=== PATIENT | female | born 1945 | race Two or more races ===

== ENCOUNTER 2023-04-02 17:40 | Emergency (ER) | payer OTHER ==
[~2023-04-02] VITALS: Ht 157.5 cm; Wt 56.7 kg
[2023-04-02] MEDS ORDERED: [UNRECOGNIZED DRUG - OTHER] (17:53)
[2023-04-02] MEDS ORDERED: GLUMETZA500 MG (17:53)
[2023-04-02] MEDS ORDERED: COZAAR25 MG PO (17:54)
[2023-04-02 18:28] LABS: HEMATOCRIT 31.8 % (36.0-45.00); HEMOGLOBIN 10.6 g/dL (12.0-15.00); MEAN CELL VOLUME 93.6 fL (80.00-100.00); MEAN CORPUSCULAR HEMOGLOBIN 31.4 pg (27.00-32.0); MEAN CORPUSCULAR HGB CONC 33.5 g/dl (32.0-36.0); PLATELET COUNT 307 K/uL (150-450); RED BLOOD COUNT 3.39 M/uL (4.00-6.00); RED CELL DISTRIBUTION WIDTH 14.3 % (11.5-14.5)
[2023-04-02 18:58] LABS: ALBUMIN 3.6 gm/dL (3.4-5.0); ALKALINE PHOSPHATASE 78 U/L (50-136); ANION GAP 9 (10.0-20.0); AST/SGOT 15 U/L (15-37); BILIRUBIN TOTAL 0.75 mg/dL (0.3-1.2); BLOOD UREA NITROGEN 75 mg/dL (7-18); BUN CREA RATIO 49 (7.0-25.0); CALCIUM 9.3 mg/dL (8.5-10.1); CARBON DIOXIDE 28 mEq/L (21-32); CHLORIDE 110 mmol/L (98-107); CREATININE SERUM 1.52 mg/dL (0.55-1.02); GFR 33.07; GLOBULINA 3.4 G/DL (2.4-3.5); GLUCOSE FASTING 91 mg/dL (65-100); OSMOLALITY SERUM 307 MOSM/KG (275-295); POTASSIUM 4.09 mEq/L (3.5-5.1); SODIUM 143 mmol/L (136-145)
[2023-04-02 19:00] LABS: ALT/SGPT < 6 U/L (12-78)
[2023-04-02] MEDS ORDERED: NORFLEX100MG PO (20:43)
== END 2023-04-03 03:37 | disposition home or self-care (01) ==
LOC: ER 17:40
PROVIDERS: General Practice
DX: M54.89 Other dorsalgia (principal); E11.9 Type 2 diabetes mellitus without complications; Z79.84 Long term (current) use of oral hypoglycemic drugs; I10 Essential (primary) hypertension; Z20.822 Contact with and (suspected) exposure to COVID-19; R51.9 Headache, unspecified
CPT/HCPCS: 36415; 96372; 99284; J1885; J2360

== ENCOUNTER 2024-11-17 14:45 | Inpatient (IN) | payer OTHER ==
[~2024-11-17] VITALS: Ht 152.4 cm; Wt 68.0 kg
[~2024-11-17 14:45] MED LIST: COZAAR25 MG PO; GLUMETZA500 MG; NORFLEX100MG PO; [UNRECOGNIZED DRUG - OTHER]
[2024-11-17] MEDS ORDERED: PHENAZOPYRIDINE HCL 100 MG TABLET PO ONE ×2 (16:30→16:34)
[2024-11-17] MEDS ORDERED: TAMSULOSIN HCL 0.4 MG CAP PO ONE ×2 (16:30→16:34)
[2024-11-17] MEDS ORDERED: KETOROLAC TROMETHAMINE 30 MG VIAL IV ONE (16:30)
[2024-11-17] MEDS ORDERED: CEFTRIAXONE SODIUM 1,000 MG VIAL IV ONE (16:30)
[2024-11-17] MEDS ORDERED: FAMOtidine 10 MG/ML (4ML VIAL) IV ONE (16:30)
[2024-11-17] MEDS ORDERED: FAMOTIDINE/PF 20 MG/2 ML VIAL ONE (16:34)
[2024-11-17] MEDS ORDERED: KETOROLAC TROMETHAMINE 30 MG VIAL ONE (16:34)
[2024-11-17] MEDS ORDERED: CEFTRIAXONE SODIUM 1,000 MG VIAL ONE (16:34)
[2024-11-17 17:25] LABS: BASO % 1.0 % (0.1-1.2); EOS # 0.09 (0.04-0.54); EOS % 1.2 % (0.7-7.0); LYMPH # 2.39 (1.18-3.74); LYMPH % 32.7 % (19.3-53.1); MEAN PLATELET VOLUME 9.70 fl (9.4-12.4); MONO # 0.56 (0.24-0.82); MONO % 7.7 % (4.7-12.5); NEUT # 4.18 (1.56-6.13); NEUT % 57.1 % (34.0-71.1); RED CELL DISTRIBUTION WIDTH 13.0 % (11.6-14.4)
[2024-11-17 17:48] LABS: INR 0.96
[2024-11-17 17:54] LABS: ALT/SGPT 15.0 U/L (12-78); AST/SGOT 17.0 U/L (15-37); BILIRUBIN TOTAL 0.74 mg/dL (0.3-1.2); BUN CREA RATIO 39.0 (7.0-25.0); CREATININE SERUM 1.76 mg/dL (0.55-1.02); GFR 27.78; GLOBULINA 3.3 G/DL (2.4-3.5); GLUCOSE FASTING 101.0 mg/dL (65-100); OSMOLALITY SERUM 309.0 MOSM/KG (275-295)
[2024-11-17 20:24] LABS: URINE APPEARANCE Turbid; URINE BILIRRUBIN Negative (NEGATIVE); URINE BLOOD Moderate; URINE COLOR Dark Yellow; URINE GLUCOSE Negative (NEGATIVE); URINE KETONE Negative (NEGATIVE); URINE LEUKOCYTE Large; URINE NITRATE Positive; URINE UROBILINOGEN 1.0 E.U./dl
[2024-11-17 20:25] LABS: URINE BACTERIA 2578.7 uL (0.0-1933); URINE CAST 2.19 uL (0.0-1.40); URINE EPITHELIAL CELLS 29.5 uL (0.0-38.8); URINE RBC 161.9 uL (0.0-20.8)
[2024-11-17 21:16] LABS: URINE PROTEIN 100 (NEGATIVE); URINE WBC > 5548.3 uL (0.0-23.2); URINE YEAST FEW /hpf
[2024-11-17] MEDS ORDERED: 0.9 % SODIUM CHLORIDE 1,000 ML IV SCH (22:15)
[2024-11-17] MEDS ORDERED: CEFTRIAXONE SODIUM 2,000 MG in 0.9 % SODIUM CHLORIDE 100 ML IV SCH (22:17)
[2024-11-17] MEDS ORDERED: ACETAMINOPHEN 500 MG GEL..CAP PO PRN (22:30)
[2024-11-17] MEDS ORDERED: hydrALAZINE HCL 20 MG VIAL IV PRN (22:30)
[2024-11-17] MEDS ORDERED: INSULIN LISPRO 1,000 UNIT/10 ML UNITS SUBCUTANEO PRN (22:30)
[2024-11-17] MEDS ORDERED: DEXTROSE 50 % IN WATER 0.5 G/ML DISP.SYRIN IV PRN (22:30)
[2024-11-17] MEDS ORDERED: ONDANSETRON HCL 4 MG in 0.9 % SODIUM CHLORIDE 50 ML IV PRN (22:30)
[2024-11-18 04:55] LABS: COVID-19 AG NEGATIVE (NEGATIVE)
[2024-11-18 05:00] LABS: CHOL HDL RATIO 4.4 (0-5.0); HDL 54.0 mg/dl (40-60); LDL 155.0 mg/dl (0-130); VLDL 29.0 (0-39)
[2024-11-18] MEDS ORDERED: FLUCONAZOLE IN NACL,ISO-OSM 200 MG/100 ML PIGGYBAG IV SCH (09:00)
[2024-11-18] MEDS ORDERED: POLYETHYLENE GLYCOL 3350 17 GM BLIST.PACK PO SCH (09:00)
[2024-11-18] MEDS ORDERED: FAMOTIDINE/PF 20 MG in 0.9 % SODIUM CHLORIDE 8 ML IV PUSH SCH (09:00)
[2024-11-18] MEDS ORDERED: CARBIDOPA/LEVODOPA 25/100 UDTAB PO SCH (09:00)
[2024-11-18] MEDS ORDERED: LACTOBACILLUS ACIDOPHILUS 1 CAP CAP PO SCH (09:00)
[2024-11-18 09:41] VITALS: BP 150/66; O2SAT 99
[2024-11-18 16:44] VITALS: BP 155/72; O2SAT 97
[2024-11-18] MEDS ORDERED: NIFEDIPINE 30 MG TAB.SA.OSM PO SCH (17:00)
[2024-11-18] MEDS ORDERED: DOCUSATE SODIUM 100MG CAP PO SCH (17:00)
[2024-11-18] MEDS ORDERED: SODIUM CHLORIDE 0.45 % 1,000 ML IV SCH (17:45)
[2024-11-19 01:11] VITALS: BP 115/63; BP 122/71; O2SAT 96; O2SAT 97
[2024-11-19 08:00] VITALS: BP 113/65; O2SAT 96
[2024-11-19] MEDS ORDERED: FLUCONAZOLE IN NACL,ISO-OSM 2 MG/ML ML IV SCH (09:00)
[2024-11-19] MEDS ORDERED: ATORVASTATIN CALCIUM 20 MG TABLET PO SCH (09:00)
[2024-11-19] MEDS ORDERED: ENOXAPARIN SODIUM 30 MG/0.3 ML SYRINGE SUBCUTANEO SCH (09:00)
[2024-11-19] MEDS ORDERED: CARBIDOPA/LEVODOPA 25/100 UDTAB PO SCH (13:07)
[2024-11-19 16:00] VITALS: BP 138/75; O2SAT 96
[2024-11-20 01:05] VITALS: BP 147/71; O2SAT 96
[2024-11-20] MEDS ORDERED: HALOPERIDOL LACTATE 5 MG/ML AMPUL ONE (03:04)
[2024-11-20] MEDS ORDERED: DIPHENHYDRAMINE HCL 50 MG/ML VIAL 1ML ONE (03:05)
[2024-11-20 03:13] VITALS: BP 137/66; O2SAT 100
[2024-11-20] MEDS ORDERED: DIPHENHYDRAMINE HCL 50 MG/ML VIAL 1ML IV STA (03:13)
[2024-11-20] MEDS ORDERED: HALOPERIDOL LACTATE 5 MG/ML AMPUL IM STA (03:13)
[2024-11-20 06:05] LABS: BASO % 0.6 % (0.1-1.2); EOS # 0.05 (0.04-0.54); EOS % 0.6 % (0.7-7.0); LYMPH # 1.80 (1.18-3.74); LYMPH % 19.9 % (19.3-53.1); MEAN PLATELET VOLUME 10.00 fl (9.4-12.4); MONO # 0.55 (0.24-0.82); MONO % 6.1 % (4.7-12.5); NEUT # 6.56 (1.56-6.13); NEUT % 72.6 % (34.0-71.1); RED CELL DISTRIBUTION WIDTH 12.9 % (11.6-14.4)
[2024-11-20 06:19] LABS: BUN CREA RATIO 33.0 (7.0-25.0); CREATININE SERUM 1.5 mg/dL (0.55-1.02); GFR 33.41; GLUCOSE FASTING 120.0 mg/dL (65-100); OSMOLALITY SERUM 301.0 MOSM/KG (275-295)
[2024-11-20 08:00] VITALS: BP 124/65; O2SAT 100
[2024-11-20] MEDS ORDERED: CARBIDOPA/LEVODOPA 25/100 UDTAB PO SCH (09:00)
[2024-11-20 17:00] VITALS: BP 148/75; O2SAT 98
[2024-11-21 00:44] VITALS: BP 115/56; O2SAT 95
[2024-11-21 08:00] VITALS: BP 150/66; O2SAT 95
[2024-11-21 16:59] VITALS: BP 164/71; O2SAT 99
[2024-11-22 00:46] VITALS: BP 146/68; O2SAT 96
[2024-11-22 08:00] VITALS: BP 146/74; O2SAT 98
[2024-11-22 15:30] VITALS: BP 148/75; O2SAT 98
[2024-11-22] MEDS ORDERED: NIFEDIPINE 30 MG TAB.SA.OSM PO SCH (17:00)
[2024-11-23 06:49] LABS: BASO % 0.3 % (0.1-1.2); EOS # 0.01 (0.04-0.54); EOS % 0.1 % (0.7-7.0); LYMPH # 2.25 (1.18-3.74); LYMPH % 12.2 % (19.3-53.1); MEAN PLATELET VOLUME 10.20 fl (9.4-12.4); MONO # 0.78 (0.24-0.82); MONO % 4.2 % (4.7-12.5); NEUT # 15.19 (1.56-6.13); NEUT % 82.8 % (34.0-71.1); RED CELL DISTRIBUTION WIDTH 13.2 % (11.6-14.4)
[2024-11-23 07:36] LABS: ALT/SGPT 12.0 U/L (12-78); AST/SGOT 24.0 U/L (15-37); BILIRUBIN TOTAL 0.69 mg/dL (0.3-1.2); BUN CREA RATIO 24.0 (7.0-25.0); CREATININE SERUM 1.3 mg/dL (0.55-1.02); GFR 39.41; GLOBULINA 3.5 G/DL (2.4-3.5); GLUCOSE FASTING 102.0 mg/dL (65-100); OSMOLALITY SERUM 294.0 MOSM/KG (275-295)
[2024-11-23 08:00] VITALS: BP 170/55; O2SAT 98
[2024-11-23] MEDS ORDERED: MEROPENEM 500 MG/VIAL VIAL IV SCH (09:00)
[2024-11-23 15:13] LABS: URINE APPEARANCE Clear; URINE BILIRRUBIN Negative (NEGATIVE); URINE BLOOD Negative; URINE COLOR Yellow; URINE GLUCOSE Negative (NEGATIVE); URINE KETONE Trace (NEGATIVE); URINE LEUKOCYTE Negative; URINE NITRATE Negative; URINE UROBILINOGEN 0.2 E.U./dl
[2024-11-23 15:14] LABS: URINE BACTERIA 33.5 uL (0.0-1933); URINE CAST 2.63 uL (0.0-1.40); URINE EPITHELIAL CELLS 11.0 uL (0.0-38.8); URINE WBC 5.8 uL (0.0-23.2)
[2024-11-23 15:54] LABS: TYPE CELLS SQUAMOUS; URINE CRYSTALS FEW /HPF; URINE MUCUS SCANT; URINE PROTEIN 100 (NEGATIVE); URINE RBC 1.4 uL (0.0-20.8)
[2024-11-23] MEDS ORDERED: CARBIDOPA/LEVODOPA 25/250 TABLET PO SCH (17:00)
[2024-11-23 17:17] VITALS: BP 125/78; O2SAT 95
[2024-11-24 00:17] VITALS: BP 129/72; O2SAT 96
[2024-11-24 08:11] LABS: BASO % 0.3 % (0.1-1.2); EOS # 0.01 (0.04-0.54); EOS % 0.1 % (0.7-7.0); LYMPH # 1.65 (1.18-3.74); LYMPH % 12.5 % (19.3-53.1); MEAN PLATELET VOLUME 10.10 fl (9.4-12.4); MONO # 0.76 (0.24-0.82); MONO % 5.8 % (4.7-12.5); NEUT # 10.69 (1.56-6.13); NEUT % 80.9 % (34.0-71.1); RED CELL DISTRIBUTION WIDTH 13.1 % (11.6-14.4)
[2024-11-24 08:39] LABS: ALT/SGPT 8.0 U/L (12-78); AST/SGOT 19.0 U/L (15-37); BILIRUBIN TOTAL 0.62 mg/dL (0.3-1.2); BUN CREA RATIO 27.0 (7.0-25.0); CREATININE SERUM 1.28 mg/dL (0.55-1.02); GFR 40.12; GLOBULINA 3.6 G/DL (2.4-3.5); GLUCOSE FASTING 104.0 mg/dL (65-100); OSMOLALITY SERUM 297.0 MOSM/KG (275-295)
[2024-11-24] MEDS ORDERED: FLUCONAZOLE 100 MG TABLET PO SCH (12:00)
[2024-11-24 16:00] VITALS: BP 108/50; O2SAT 94
[2024-11-24] MEDS ORDERED: METOPROLOL SUCCINATE 25 MG TAB.SR.24H PO SCH (16:24)
[2024-11-25 08:00] VITALS: BP 130/73; O2SAT 95
[2024-11-25 08:52] LABS: ALT/SGPT 13.0 U/L (12-78); AST/SGOT 34.0 U/L (15-37); BILIRUBIN TOTAL 0.46 mg/dL (0.3-1.2); BUN CREA RATIO 31.0 (7.0-25.0); CREATININE SERUM 1.37 mg/dL (0.55-1.02); GFR 37.1; GLOBULINA 3.9 G/DL (2.4-3.5); GLUCOSE FASTING 86.0 mg/dL (65-100); OSMOLALITY SERUM 297.0 MOSM/KG (275-295)
[2024-11-25] MEDS ORDERED: NIFEDIPINE 30 MG TAB.SA.OSM PO SCH ×2 (09:00→17:00)
[2024-11-25 11:09] LABS: BASO % 0.6 % (0.1-1.2); EOS # 0.03 (0.04-0.54); EOS % 0.3 % (0.7-7.0); LYMPH # 1.31 (1.18-3.74); LYMPH % 12.6 % (19.3-53.1); MEAN PLATELET VOLUME 9.30 fl (9.4-12.4); MONO # 0.70 (0.24-0.82); MONO % 6.7 % (4.7-12.5); NEUT # 8.29 (1.56-6.13); NEUT % 79.4 % (34.0-71.1); RED CELL DISTRIBUTION WIDTH 13.0 % (11.6-14.4)
[2024-11-25] MEDS ORDERED: IRON FUM,PS/FOLIC/BCOMP,C NO.9 1 CAP CAPSULE PO SCH (15:00)
[2024-11-25 16:15] VITALS: BP 126/85; O2SAT 97
[2024-11-25] MEDS ORDERED: DOCUSATE SODIUM 100MG CAP PO SCH (21:00)
[2024-11-26] VITALS: BP 136/74; O2SAT 98
[2024-11-26 07:27] LABS: BASO % 0.5 % (0.1-1.2); EOS # 0.07 (0.04-0.54); EOS % 0.8 % (0.7-7.0); LYMPH # 2.18 (1.18-3.74); LYMPH % 23.7 % (19.3-53.1); MEAN PLATELET VOLUME 10.40 fl (9.4-12.4); MONO # 0.63 (0.24-0.82); MONO % 6.8 % (4.7-12.5); NEUT # 6.25 (1.56-6.13); NEUT % 67.9 % (34.0-71.1); RED CELL DISTRIBUTION WIDTH 13.1 % (11.6-14.4)
[2024-11-26 07:58] LABS: ALT/SGPT 14.0 U/L (12-78); AST/SGOT 27.0 U/L (15-37); BILIRUBIN TOTAL 0.54 mg/dL (0.3-1.2); BUN CREA RATIO 28.0 (7.0-25.0); CREATININE SERUM 1.3 mg/dL (0.55-1.02); GFR 39.41; GLOBULINA 3.7 G/DL (2.4-3.5); GLUCOSE FASTING 108.0 mg/dL (65-100); OSMOLALITY SERUM 296.0 MOSM/KG (275-295)
[2024-11-26 08:00] VITALS: BP 106/64; BP 122/70; O2SAT 96; O2SAT 97
[2024-11-26] MEDS ORDERED: METOPROLOL SUCCINATE 50 MG TAB.SR.24H PO SCH (09:00)
[2024-11-26 16:00] VITALS: BP 106/63; O2SAT 96
[2024-11-26] MEDS ORDERED: LORazepam 2 MG/ML VIAL ONE (16:02)
[2024-11-26] MEDS ORDERED: LORazepam 2 MG/ML VIAL IV STA (16:10)
[2024-11-26 23:51] VITALS: BP 147/80; O2SAT 99
[2024-11-27 08:00] VITALS: BP 174/74; O2SAT 99
[2024-11-27 16:15] VITALS: BP 151/72; O2SAT 97
[2024-11-28 01:20] VITALS: BP 112/68; O2SAT 94
[2024-11-28] MEDS ORDERED: CARBIDOPA-LEVO1 EA11 PO (11:05)
[2024-11-28] MEDS ORDERED: NIFEDIPINE ER30 M1 PO (11:06)
[2024-11-28] MEDS ORDERED: INTEGRA PLUS C1 EACH PO (11:07)
[2024-11-28] MEDS ORDERED: LIPITOR20 MG PO (11:08)
[2024-11-28] MEDS ORDERED: FAMOTIDINE20 MG PO (11:08)
[2024-11-28] MEDS ORDERED: INTESTINEX680 M1 PO (11:09)
[2024-11-28] MEDS ORDERED: TOPROL XL50 M1 PO (11:10)
[2024-11-28 11:22] VITALS: BP 137/70; O2SAT 94
== END 2024-11-28 13:18 | disposition home or self-care (01) | DRG 690 ==
LOC: ER 14:45 → SURG 22:19 → SEC-K 22:19 → SURG 11-18 00:56
PROVIDERS: General Practice; Internal Medicine; Internal Medicine Infectious Disease; ADMIT Internal Medicine; ATTEND Internal Medicine
PROC: BW21ZZZ Computerized Tomography (CT Scan) of Abdomen and Pelvis (ICD-10-PCS; principal; 2024-11-17)
PROC: B020ZZZ Computerized Tomography (CT Scan) of Brain (ICD-10-PCS; 2024-11-21)
DX: N39.0 Urinary tract infection, site not specified (principal); N17.9 Acute kidney failure, unspecified; E11.65 Type 2 diabetes mellitus with hyperglycemia; I12.9 Hypertensive chronic kidney disease with stage 1 through stage 4 chronic kidney disease, or unspecified chronic kidney disease; N18.9 Chronic kidney disease, unspecified; G20.A1 Parkinson's disease without dyskinesia, without mention of fluctuations; D72.829 Elevated white blood cell count, unspecified; E78.5 Hyperlipidemia, unspecified; R68.89 Other general symptoms and signs; Z74.09 Other reduced mobility; Z79.84 Long term (current) use of oral hypoglycemic drugs

== ENCOUNTER 2025-03-27 19:39 | Inpatient (IN) | payer OTHER ==
[~2025-03-27] VITALS: Ht 157.5 cm; Wt 77.1 kg
[~2025-03-27 19:39] MED LIST changes: +CARBIDOPA-LEVO1 EA11 PO; +FAMOTIDINE20 MG PO; +INTEGRA PLUS C1 EACH PO; +INTESTINEX680 M1 PO; +LIPITOR20 MG PO; +NIFEDIPINE ER30 M1 PO; +TOPROL XL50 M1 PO
[2025-03-27] MEDS ORDERED: IRBESARTAN75 MG PO (19:59)
--- NOTE | 2025-03-27 19:59 | NUR ---
PTE ALERTA Y ORIENTADA X3 LLEGA EN AMBULANCIA DEBIDO A QUE LA MISMA TIENE DOLOR ABDOMINAL Y 2 VOMITOS EN LA TARDE DE HOY.
[2025-03-28 00:40] LABS: BASO % 0.7 % (0.1-1.2); EOS # 0.10 (0.04-0.54); EOS % 1.4 % (0.7-7.0); LYMPH # 2.49 (1.18-3.74); LYMPH % 34.0 % (19.3-53.1); MEAN PLATELET VOLUME 9.60 fl (9.4-12.4); MONO # 0.43 (0.24-0.82); MONO % 5.9 % (4.7-12.5); NEUT # 4.23 (1.56-6.13); NEUT % 57.7 % (34.0-71.1); RED CELL DISTRIBUTION WIDTH 12.3 % (11.6-14.4)
[2025-03-28] MEDS ORDERED: FAMOtidine 10 MG/ML (4ML VIAL) IV ONE (01:15)
[2025-03-28] MEDS ORDERED: ONDANSETRON HCL 2 MG/ML VIAL IV ONE (01:15)
[2025-03-28] MEDS ORDERED: 0.9 % SODIUM CHLORIDE 1,000 ML IV ONE (01:15)
[2025-03-28 01:27] LABS: ALT/SGPT 6.0 U/L (12-78); AST/SGOT 15.0 U/L (15-37); BILIRUBIN TOTAL 0.53 mg/dL (0.3-1.2); BUN CREA RATIO 28.0 (7.0-25.0); CREATININE SERUM 2.18 mg/dL (0.55-1.02); GFR 21.7; GLOBULINA 3.3 G/DL (2.4-3.5); GLUCOSE FASTING 91.0 mg/dL (65-100); OSMOLALITY SERUM 300.0 MOSM/KG (275-295)
--- NOTE | 2025-03-28 01:50 | NUR ---
SE ORIENTA PTE SOBRE TX A SEGUIR, LA MISMA REFIERE ENTENDER. SE GILBERTO MUESTRA DE LAB BAJO MEDIDAS ASEPTICAS. SE REALIZA EKG Y SE PRESENTA A DR CANALES
--- NOTE | 2025-03-28 06:14 | NUR ---
SE ORIENTA SOBRE TX A SEGUIR, LA MISMA REFIERE ENTENDER. SE INSERTA VALDEZ BAJO MEDIDAS ESTERILES
[2025-03-28 06:36] LABS: URINE APPEARANCE Clear; URINE BILIRRUBIN Negative (NEGATIVE); URINE BLOOD Negative; URINE COLOR Yellow; URINE GLUCOSE Negative (NEGATIVE); URINE KETONE Negative (NEGATIVE); URINE LEUKOCYTE Small; URINE NITRATE Negative; URINE PROTEIN 30 (NEGATIVE); URINE UROBILINOGEN 0.2 E.U./dl
[2025-03-28 06:39] LABS: URINE BACTERIA 226.7 uL (0.0-1933); URINE CAST 2.19 uL (0.0-1.40); URINE EPITHELIAL CELLS 31.2 uL (0.0-38.8); URINE RBC 2.3 uL (0.0-20.8); URINE WBC 69.3 uL (0.0-23.2)
--- NOTE | 2025-03-28 06:56 | NUR ---
SE RECIBE A PACIENTE ALERTA Y ORIENTADA X3 EN AREA DE CRITICO, SE CONECTA A MONITOR CARDIACO Y OXIMETRIA CONTINUA. CANALIZADA CON #20 EN RT ARM, PATENTE, ADEOLA DE EDEMA Y ERITEMA Y BAJANDO [id number] KVO. PACIENTE CON VALDEZ COLOCADO BAJANDO A GRAVEDAD Y FIJADO. PACIENTE SE MANTIENE EN CAMA A NIVEL DE PISO JUNTO CON BARRANDAS ELEVADAS. PENDIENTE A ESTUDIOS Y CONSULTA CON MEDICINA INTERNA.
--- NOTE | 2025-03-28 09:44 | NUR ---
SE RECIBE PTE FEMENINA DE 79 YRS ALERTA CONCIENTE Y TRANQUILA EN CAMA EN LA UNIDAD DE ICU-2 CONCETADA A MONTIOR CARDIACO Y OXIMETRIA .SE LE REALIZA A PTE ESTUIUDO DE RX PORTABLE. SE MANTIENE EN ESPERA DE MEDICO CONSULTAOR EL [place] INTERNA.SE MANTIENE AL MOMENTO ADEOLA DE DOLOR .
[2025-03-28] MEDS ORDERED: LORazepam 2 MG/ML VIAL IV STA (14:03)
[2025-03-28] MEDS ORDERED: INSULIN LISPRO 1,000 UNIT/10 ML UNITS SUBCUTANEO PRN ×2 (15:30→19:30)
[2025-03-28] MEDS ORDERED: DEXTROSE 50 % IN WATER 0.5 G/ML DISP.SYRIN IV PRN ×2 (15:30→19:30)
[2025-03-28] MEDS ORDERED: ATORVASTATIN CALCIUM 40 MG TABLET PO SCH (16:59)
[2025-03-28] MEDS ORDERED: ACETAMINOPHEN 500 MG GEL..CAP PO PRN (17:00)
[2025-03-28] MEDS ORDERED: 0.9 % SODIUM CHLORIDE 1,000 ML IV SCH (17:00)
[2025-03-28 17:29] VITALS: BP 111/56
[2025-03-28 21:53] VITALS: BP 153/63
[2025-03-28] MEDS ORDERED: HALOPERIDOL LACTATE 5 MG/ML AMPUL IV PRN (23:30)
[2025-03-29 02:48] VITALS: BP 167/85; O2SAT 96
[2025-03-29 06:17] LABS: BASO % 0.5 % (0.1-1.2); EOS # 0.02 (0.04-0.54); EOS % 0.2 % (0.7-7.0); LYMPH # 1.14 (1.18-3.74); LYMPH % 11.3 % (19.3-53.1); MEAN PLATELET VOLUME 11.20 fl (9.4-12.4); MONO # 0.54 (0.24-0.82); MONO % 5.3 % (4.7-12.5); NEUT # 8.33 (1.56-6.13); NEUT % 82.4 % (34.0-71.1); RED CELL DISTRIBUTION WIDTH 12.1 % (11.6-14.4)
[2025-03-29 06:34] LABS: INR 0.98
[2025-03-29 06:57] LABS: ALT/SGPT 15.0 U/L (12-78); AST/SGOT 13.0 U/L (15-37); BILIRUBIN TOTAL 0.97 mg/dL (0.3-1.2); BUN CREA RATIO 32.0 (7.0-25.0); CREATININE SERUM 1.61 mg/dL (0.55-1.02); GFR 30.79; GLOBULINA 3.2 G/DL (2.4-3.5); GLUCOSE FASTING 91.0 mg/dL (65-100); OSMOLALITY SERUM 298.0 MOSM/KG (275-295); TSH 0.628 uIU/mL (0.358-3.74)
[2025-03-29] MEDS ORDERED: FAMOTIDINE/PF 20 MG in 0.9 % SODIUM CHLORIDE 8 ML IV PUSH SCH (09:00)
[2025-03-29] MEDS ORDERED: METOPROLOL SUCCINATE 50 MG TAB.SR.24H PO SCH (09:00)
[2025-03-29] MEDS ORDERED: IRBESARTAN 300 MG TABLET PO SCH (09:00)
[2025-03-29] MEDS ORDERED: CARBIDOPA/LEVODOPA 25/250 TABLET PO SCH (09:00)
[2025-03-29 09:02] VITALS: BP 160/75; O2SAT 96
[2025-03-29 19:59] VITALS: BP 148/72
[2025-03-30 01:52] VITALS: BP 163/65; O2SAT 96
[2025-03-30 08:20] VITALS: BP 160/69; O2SAT 98
[2025-03-30] MEDS ORDERED: AMLODIPINE BESYLATE 5 MG TABLET PO SCH (10:38)
[2025-03-30 16:18] VITALS: BP 158/64; O2SAT 97
[2025-03-31 01:01] VITALS: BP 190/71; O2SAT 96
[2025-03-31] MEDS ORDERED: hydrALAZINE HCL 20 MG VIAL IV PRN (05:30)
[2025-03-31] MEDS ORDERED: SODIUM CHLORIDE 0.45 % 1,000 ML IV SCH (05:30)
[2025-03-31 08:56] VITALS: BP 160/80; O2SAT 96
[2025-03-31] MEDS ORDERED: AMLODIPINE BESYLATE 10 MG TABLET PO SCH (09:00)
[2025-03-31] MEDS ORDERED: LOSARTAN POTASSIUM 25 MG TABLET PO NR (13:00)
[2025-03-31 15:15] LABS: BUN CREA RATIO 28.0 (7.0-25.0); CREATININE SERUM 1.18 mg/dL (0.55-1.02); GFR 44.07; GLUCOSE FASTING 96.0 mg/dL (65-100); OSMOLALITY SERUM 296.0 MOSM/KG (275-295)
[2025-03-31 17:11] VITALS: BP 116/65; O2SAT 96
[2025-04-01 03:04] VITALS: BP 171/79; O2SAT 100
[2025-04-01 05:38] LABS: BASO % 0.6 % (0.1-1.2); EOS # 0.10 (0.04-0.54); EOS % 1.0 % (0.7-7.0); LYMPH # 3.18 (1.18-3.74); LYMPH % 32.3 % (19.3-53.1); MEAN PLATELET VOLUME 10.50 fl (9.4-12.4); MONO # 0.54 (0.24-0.82); MONO % 5.5 % (4.7-12.5); NEUT # 5.96 (1.56-6.13); NEUT % 60.4 % (34.0-71.1); RED CELL DISTRIBUTION WIDTH 12.1 % (11.6-14.4)
[2025-04-01 05:42] LABS: BUN CREA RATIO 24.0 (7.0-25.0); CREATININE SERUM 1.18 mg/dL (0.55-1.02); GFR 44.07; GLUCOSE FASTING 106.0 mg/dL (65-100); OSMOLALITY SERUM 295.0 MOSM/KG (275-295)
[2025-04-01 09:00] VITALS: BP 129/62; O2SAT 97
[2025-04-01] MEDS ORDERED: LOSARTAN POTASSIUM 25 MG TABLET PO SCH (09:00)
[2025-04-01] MEDS ORDERED: METOPROLOL SUCCINATE 100 MG TAB.SR.24H PO SCH (09:00)
[2025-04-01 16:25] VITALS: BP 123/58
== END 2025-04-01 21:17 | disposition home or self-care (01) | DRG 683 ==
LOC: ER 19:39 → MEDI 03-28 17:33 → SEC-K 03-28 17:33 → MEDI 03-28 18:06
PROVIDERS: Preventive Medicine Public Health & General Preventive Medicine; Student in an Organized Health Care Education/Training Program; ADMIT Internal Medicine; ATTEND Internal Medicine
PROC: BW28ZZZ Computerized Tomography (CT Scan) of Head (ICD-10-PCS; principal; 2025-03-27)
PROC: B348ZZZ Ultrasonography of Bilateral Internal Carotid Arteries (ICD-10-PCS; 2025-03-28)
PROC: B345ZZZ Ultrasonography of Bilateral Common Carotid Arteries (ICD-10-PCS; 2025-03-28)
PROC: BT43ZZZ Ultrasonography of Bilateral Kidneys (ICD-10-PCS; 2025-03-28)
PROC: BW21ZZZ Computerized Tomography (CT Scan) of Abdomen and Pelvis (ICD-10-PCS; 2025-03-28)
PROC: B246ZZZ Ultrasonography of Right and Left Heart (ICD-10-PCS; 2025-03-28)
DX: N17.9 Acute kidney failure, unspecified (principal); N39.0 Urinary tract infection, site not specified; R30.0 Dysuria; R33.9 Retention of urine, unspecified; G20.A1 Parkinson's disease without dyskinesia, without mention of fluctuations; R53.1 Weakness; Z74.09 Other reduced mobility; E11.65 Type 2 diabetes mellitus with hyperglycemia; R10.12 Left upper quadrant pain; R19.7 Diarrhea, unspecified; I10 Essential (primary) hypertension; R41.0 Disorientation, unspecified